=== PATIENT | female | born 1965 | race Caucasian/White ===

== ENCOUNTER → 2023-05-01 08:04 | Outpatient (CLI) | payer BC, SELFPAY ==
--- NOTE | 2023-05-01 08:08 | MM_ITS ---
PROCEDURE INFORMATION: Exam: MG Bilateral Screening 3D Mammography Exam date and time: 05/01/2023 7:57 AM Age: 57 years old Clinical indication: Screening examination; Family history of breast cancer in aunt TECHNIQUE: Imaging protocol: Bilateral Screening tomosynthesis and 2D mammography including computer-aided detection (CAD) when performed. COMPARISON: No relevant prior studies available. FINDINGS: MAMMOGRAPHY: Breast composition: There are scattered areas of fibroglandular density. Mass: None. Architectural distortion: None. Calcifications: No suspicious calcifications. Asymmetric density: None. Skin thickening: None. Axillary adenopathy: None. IMPRESSION: No mammographic evidence of malignancy. Annual screening is recommended unless otherwise clinically indicated. ASSESSMENT: BI-RADS Category 1: Negative
== END ==
PROVIDERS: PCP Family Medicine; Visit Provider Obstetrics & Gynecology
DX: Z12.31 Encounter for screening mammogram for malignant neoplasm of breast (principal)
CPT/HCPCS: 77063; 77067

== ENCOUNTER 2023-07-26 15:18 | Outpatient (CLI) | payer BC, SELFPAY ==
--- NOTE | 2023-07-26 15:25 | XR_ITS ---
FINAL REPORT CLINICAL HISTORY: dyspnea FINDINGS: TWO-VIEW CHEST The heart size is normal. The mediastinum is normal. The lungs are clear. There is no pneumothorax. IMPRESSION: No acute cardiopulmonary process. Reviewed, Interpreted and Dictated by Bereket Ortiz MD Transcribed by Gita Benitez Authenticated and [facility]
== END 2023-07-26 23:59 ==
LOC: RAD 15:19
PROVIDERS: PCP Nurse Practitioner Family; Visit Provider Physician Assistant
DX: R00.2 Palpitations (principal); I10 Essential (primary) hypertension; R01.1 Cardiac murmur, unspecified; R06.09 Other forms of dyspnea; R94.31 Abnormal electrocardiogram [ECG] [EKG]
CPT/HCPCS: 71046; 93225

== ENCOUNTER 2023-08-13 10:46 | Outpatient (CLI) | payer BC, SELFPAY ==
--- NOTE | 2023-08-13 10:51 | CA_ITS ---
APPROVED REPORT EXAM: Comprehensive 2D, Doppler, and color-flow Echocardiogram Insurance Plan Specialist: Zaynab Chan RVT Ht: 5 ft 5 in Wt: 174lbs BSA: 1.86 BP: 148/75 mmHg Indications: DYSPENA,HTN,PALPS,MURMUR,ABN EKG 2D Dimensions LA Volume 50.50 mL LA Volume Index 27.01 mL/m2 (M/F) 16-34 M-Mode Dimensions RVDd 2.97 cm (0.9-2.6) LA Diam 4.27 cm (1.9-4.0) LVDd 4.07 cm (3.5-5.7) LVDs 2.05 cm (3.5-5.7) IVSd 0.88 cm (0.6-1.1) PWd 0.52 cm (0.6-1.1) EF (Teich) 81.30% FS 49.60% EDV (Teich) 72.90 mL TAPSE 2.26 (<1.7) ESV (Teich) 13.60 mL LV Diastology E Decel Time 217 (160-240 msec) E/A Ratio 1.0 Aortic Valve KING Index 1.56 cm2/m2 AoV Peak Israel. 143.0 (50-130 cm/s) AO Peak GR. 8.20 mmHg AO Mean GR. 3.90 (<5 mmHg) AO VTI 27.4 (18-25 cm) KING (VTI) 2.98 (2.5-4.5 cm2) Mitral Valve MV E Max Israel. 126.0 (40-130 cm/s) MV A Velocity 123.0 (40-130 cm/s) E/A Ratio 1.02 MV PHT 63.0 ms Pulmonary Valve PV Peak Velocity 99.0 (50-150 cm/s) Tricuspid Valve TR P. Velocity 260.00 cm/s RAP Estimate 10.00 mmHg RVSP 37.10 mmHg Left Ventricle The left ventricle is normal size. The left ventricular systolic function is normal. The left ventricular ejection fraction is within the normal range. There is increased LV wall thickness. There is normal LV segmental wall motion. Transmitral Doppler flow pattern suggests impaired LV relaxation. LVEF is 55%. Right Ventricle The right ventricle is normal size. The right ventricular systolic function is normal. Atria The left atrium size is normal. The right atrium size is normal. There is no Doppler evidence of interatrial shunt. Aortic Valve The aortic valve is mildly thickened. There is no aortic valvular stenosis. Trace aortic regurgitation. Mitral Valve The mitral valve leaflets are mildly thickened. No evidence of mitral valve stenosis. Mild mitral regurgitation. Tricuspid Valve The tricuspid valve leaflets are thin and pliable. Mild tricuspid regurgitation. RVSP is 25-30 mmHg. Pulmonic Valve The pulmonary valve is normal in structure. Trace pulmonic regurgitation. Great Vessels The aortic root is normal in size. The ascending aorta is not well-visualized. IVC is normal in size and collapses >50% with inspiration. Pericardium There is no pericardial effusion. Other Information Study Quality: Fair Conclusion Normal biventricular systolic function. Mild MR, mild TR. Electronically signed by : Linda Stallworth MD 08/14/2023 22:40:48
--- NOTE | 2023-08-13 12:19 | NM_ITS ---
APPROVED REPORT Exam: Nuclear Stress Test Indication: Chest pain, SOB, Palpitations, Fatigue, HTN, High cholesterol, Family history Patient Location: Outpatient Stress Tech: Lula Wellington [place] Tech:Melisa Roe, ARRT, RT (R)(N) Ht: 5 ft 5 in Wt: 171 lbs Bra Size: 38C HR: 66 bpm BP: 177/88 mmHg BSA: 1.85 m2 Rhythm: NSR TID: 0.99 BMI: 28.4 History: Chest pain, SOB, Palpitations, Fatigue, HTN, High cholesterol, Family history Procedure: Patient exercised on Filiberto protocol 10:35 minutes and sec, resting heart rate 66 bpm, resting blood pressure 177/88 mmHg, with exercise maximum heart rate achived was 147 bpm which is 90 % of the maximum predicted heart rate and blood pressure was 182/82 mmHg. Test was stopped due to SOB. Patient denied any complaint of chest pain. Patient has average exercise capacity, achieved 10.1 METs of workload on treadmill, the blood pressure response to exercise was normal management. Cardiac Stress and Resting SPECT Images: Cardiac Stress and Resting SPECT images were obtained using technetium 99m Myoview 32.5 mCi stress and 10.72 mCi at rest. Resting and stress imaging in supine and prone positions demonstrate no evidence of fixed or reversible perfusion defects. Gated imaging demonstrates normal global and regional LV systolic function. LVEF is calculated at 74%. Conclusion: No evidence of fixed or reversible perfusion defects. Gated imaging demonstrates normal global and regional LV systolic function. LVEF is calculated at 74%. Electronically signed by : Linda Stallworth MD 08/14/2023 23:13:00
[2023-08-13] MEDS: SODIUM CHLORIDE 0.9% 10ML SYR (RAD ONLY) 10 ML IV ×2 (13:01)
[2023-08-13] MEDS: ISOTOPE MYOVIEW (PER STUDY) 1 DOSE IV (13:01)
--- NOTE | 2023-08-13 13:07 | CA_ITS ---
APPROVED REPORT Exam: Exercise Treadmill Technologist: Lula Parnell, Ht: 5 ft 5 in Wt: 174 lbs BSA: 1.86 m2 HR: 65 bpm BP: 170/71 mmHg Rhythm: NSR Medical History Medications: Omeprazole,,,,, Zetia,,,,, Buspirone,,,,, ClonAZEPAM,,,,, Montelukast,,,,, Radha,,,,, Sertraline,,,,, Losartan-HCTZ,,,,, Metoprolol Succinate ER,,,,, Vitamin D3, B12,,,,, ArNuity ELLIPTA,,,,, Stress Test Details Test: Filiberto HR Resting HR: 66 bpm Max Heart Rate (APMHR): 164 bpm Max HR Achieved: 147 bpm Target HR (85% APMHR): 139 bpm % of APMHR: 90 Recovery HR: 97 bpm HR response to stress: Normal HR response to stress BP Resting BP: 177.0/88.0 mmHg Max BP: 182.0/82.0 mmHg Recovery BP: 150.0/65.0 mmHg BP response to stress: Normal blood pressure response to stress. ECG Resting ECG: NSR, no ST changes Stress EC.[address] depression Arrhythmia: PACs Recovery ECG: Return to baseline within 3 minutes of recovery Recovery Arrhythmia: None Clinical Exercise duration: 10:35 min Highest Stage Achieved: Exercise capacity: 10.1 METs Overall Exercise Capacity for Age: Average Stress ECG Conclusion Injected @ 0839 Smyptoms: SOA Chest discomfort Arrhythmias/Ectopy: Occasional PAC ST-T Changes: < 0.[address] depression. Conclusion: Average exercise capacity. No evidence of ischemia at peak stress. Myoview images are reported separately. Test Summary REST . . . . . . . Sitting REST . . . . . . . Standing REST 03:09 0.0 1.2 66 . 177/ 88 . . Stage 1 01:00 10.0 1.7 87 . . . . Stage 1 02:00 10.0 1.7 99 . . . . Stage 1 03:00 10.0 1.7 104 . 170/ 80 . . Stage 2 01:00 12.0 2.5 109 . . . . Stage 2 02:00 12.0 2.5 117 . 182/ 82 . . Stage 2 03:00 12.0 2.5 116 . 182/ 82 . . Stage 3 01:00 14.0 3.4 126 . . . . Stage 3 02:00 14.0 3.4 135 . . . . Stage 3 . . . . . . . Stage held Stage 3 03:00 14.0 3.4 141 . . . . Stage 3 04:00 14.0 3.4 146 . . . . Stage 3 . . . . . . . Stage resumed Stage 3 04:35 14.0 3.4 146 . . . Stop exercise at 10:35 RECOVERY 01:00 0.0 0.0 132 . . . . RECOVERY 02:00 0.0 0.0 117 . . . . RECOVERY 03:00 0.0 0.0 103 . 174/ 84 . . RECOVERY 04:00 0.0 0.0 103 . 159/ 68 . . RECOVERY 04:48 0.0 0.0 100 . 150/ 65 . . Electronically signed by : Linda Stallworth MD 08/14/2023 23:08:49
== END 2023-08-13 23:59 ==
LOC: RT 10:46
PROVIDERS: PCP Nurse Practitioner Family; Visit Provider Nurse Practitioner Family
DX: R06.00 Dyspnea, unspecified (principal); R00.2 Palpitations; R94.31 Abnormal electrocardiogram [ECG] [EKG]; I10 Essential (primary) hypertension
CPT/HCPCS: 78452; 93017; 93018; 93306; A9502

== ENCOUNTER 2024-04-23 07:56 | Outpatient (CLI) | payer BC, SELFPAY ==
[2024-04-23] MEDS: ALBUTEROL 0.083% 2.5 MG/3 ML NEB IH (09:03)
[2024-04-23 10:57] LABS: Albumin Level 5.2 g/dl (3.5-5.0); Chloride 101 mmol/L (98-107); Sodium 140 mmol/L (136-145)
[2024-04-23 10:59] LABS: Alanine Aminotransferase 24 U/L (12-78); Aspartate Amino Transferase 29 U/L (14-36); Blood Urea Nitrogen 12 mg/dl (7-17); Carbon Dioxide 24 mmol/L (22.0-30.0); Estimated Glomerular Filt Rate 74 ml/min (>60); GFR (African American) 89 ML/MIN (>60)
[2024-04-23 11:00] LABS: Albumin/Globulin Ratio 1.7 (1.1-1.8); Alkaline Phosphatase 88 U/L (38-126); Bilirubin,Total 0.7 mg/dl (0.2-1.3); Calcium 10.3 mg/dl (8.4-10.2); Chol/HDL Ratio 4.9 (1-3.5); Cholesterol 182 mg/dl (140-200); Glucose 95 mg/dl (74-100); HDL Cholesterol 37 mg/dl (40-60); Total Protein,Serum 8.2 g/dl (6.3-8.2); Triglycerides 283 mg/dl (30-150); VLDL Cholesterol 57 mg/dL (0-40)
[2024-04-23 11:17] LABS: Direct LDL Cholesterol 109.86 mg/dL (100-129)
[2024-04-23 11:20] LABS: 25-OH Vitamin D, Total 81.1 ng/mL (30-100)
[2024-04-23 11:31] LABS: Thyroid Stimulating Hormone 0.32 uIU/mL (0.465-4.68)
[2024-04-24 15:33] LABS: Anti-Cyclic Citrullinated Pept 7 units (0-19)
== END 2024-04-23 23:59 | disposition home or self-care (01) ==
LOC: RT 07:58
PROVIDERS: PCP Nurse Practitioner Family; Visit Provider Allergy & Immunology
DX: J45.40 Moderate persistent asthma, uncomplicated (principal); R94.2 Abnormal results of pulmonary function studies; E03.9 Hypothyroidism, unspecified; I10 Essential (primary) hypertension; M13.0 Polyarthritis, unspecified; E55.9 Vitamin D deficiency, unspecified; E78.2 Mixed hyperlipidemia
CPT/HCPCS: 36415; 80053; 80061; 82306; 84443; 86200; 86225; 86235; 86431; 94060; 94726; 94729; J7613

== ENCOUNTER 2024-05-02 08:28 | Outpatient (CLI) | payer BC, SELFPAY ==
--- NOTE | 2024-05-02 08:31 | MM_ITS ---
PROCEDURE INFORMATION: Exam: MG Bilateral Screening 3D Mammography Exam date and time: 05/02/2024 8:16 AM Age: 58 years old Clinical indication: Screening examination. Paternal aunt had breast cancer. TECHNIQUE: Imaging protocol: Bilateral Screening tomosynthesis and 2D mammography including computer-aided detection (CAD) when performed. COMPARISON: MG MM DIG SCREENING MAMM BI W/CAD 05/01/2023 7:57 AM FINDINGS: MAMMOGRAPHY: Breast composition: There are scattered areas of fibroglandular density. Mass: No suspicious mass. Architectural distortion: None. Calcifications: No suspicious calcifications. Asymmetric density: None. Skin thickening: None. Axillary adenopathy: None. IMPRESSION: No mammographic evidence of malignancy. Annual screening is recommended unless otherwise clinically indicated. ASSESSMENT: BI-RADS Category 1: Negative.
== END 2024-05-02 23:59 | disposition home or self-care (01) ==
LOC: RAD 08:28
PROVIDERS: PCP Nurse Practitioner Family; Visit Provider Registered Nurse
DX: Z12.31 Encounter for screening mammogram for malignant neoplasm of breast (principal)
CPT/HCPCS: 77063; 77067

== ENCOUNTER 2024-11-10 09:17 | Outpatient (CLI) | payer BC, SELFPAY ==
[2024-11-10 10:36] LABS: Chol/HDL Ratio 3.2 (1-3.5); Cholesterol 149 mg/dl (140-200); HDL Cholesterol 46 mg/dl (40-60); Triglycerides 179 mg/dl (30-150); VLDL Cholesterol 36 mg/dL (0-40)
[2024-11-10 10:47] LABS: Direct LDL Cholesterol 81.88 mg/dL (100-129)
== END 2024-11-10 23:59 | disposition home or self-care (01) ==
LOC: LAB 09:18
PROVIDERS: PCP Nurse Practitioner; Visit Provider Nurse Practitioner
DX: E78.5 Hyperlipidemia, unspecified (principal)
CPT/HCPCS: 36415; 80061

== ENCOUNTER 2024-12-08 11:55 | Day surgery (SDC) | payer BC, SELFPAY ==
[2024-12-05 13:15] VITALS: BMI 27.4
[2024-12-08 12:58] VITALS: BP 127/69; PULSE 71; RESP 18; TEMP 36.6; O2SAT 98
--- NOTE | 2024-12-08 13:43 | EXP.HP ---
History of Present Illness *Admission Date: 12/08/24 *Reason for visit:: Screening *History of present illness: Mrs. Godwin is a 59-year-old female who is here for initial screening colonoscopy. The patient's mother had colon cancer in her late 70s. The examination is deemed medically necessary for screening colonoscopy. The patient has been seen, interviewed and examined prior to the procedure by both myself and the anesthesia provider. [facility] Disclaimer: The information contained in this section may have been updated after the patient was seen, as this information can be updated by other users. Medical History (Updated 12/08/24 @ 13:56 by Rajeev Owen II, MD) Hypertriglyceridemia HLD (hyperlipidemia) Anxiety Asthma Palpitations HTN (hypertension) Surgical History History of sinus surgery H/O total hysterectomy Family History Other Colitis Colon cancer Diabetes Hypertension Stroke Social History Smoking Status: Never smoker alcohol intake: never current occupational status: employed Travel in the last 8 weeks?: Inside the [place] Have you lived/traveled outside US in past 30 days?: No Contact w/someone who lives/traveled outside US past 30 days?: No Exposure to someone with infectious disease in past 14 days?: No Do you have a fever (greater than 100.4 F or 38 C)?: No Have you tested positive for COVID-19?: No Exposed to someone with COVID-19 in past 14 days?: No Do you have a sore throat?: No Do you have a cough?: No Do you have any weakness?: No Do you have any diarrhea?: No Are you experiencing any unusual bleeding?: No Do you have any muscle aches/pain?: No Do you have any abdominal pain?: No Are you experiencing loss of taste or smell?: No Other Medical History Have you received the Pneumonia Vaccine: Yes Review of Systems Review of Systems Review of systems (narrative): Negative *Cardiovascular Comments: Negative *Gastrointestinal Comments: Negative *Genitourinary Comments: Negative *Musculoskeletal Comments: Negative *Neurologic Comments: Negative Meds Home Medications and Allergies Home Medications ?Medication ?Instructions ?Recorded ?Confirmed ?Type buspirone 10 mg tablet 5 mg PO DAILY 07/26/23 12/08/24 History cholecalciferol (vitamin D3) 25 25 mcg PO DAILY 07/26/23 12/08/24 History mcg (1,000 unit) capsule clonazepam 0.5 mg tablet 0.5 mg PO DAILY 07/26/23 12/08/24 History fexofenadine 180 mg tablet 180 mg PO DAILY 07/26/23 12/08/24 History (Radha Allergy) fish, borage, flaxseed oils-omega 1,200 cap PO DAILY 07/26/23 12/08/24 History 3,6,9 comb no.1 1,200 mg capsule montelukast 10 mg tablet 10 mg PO DAILY 07/26/23 12/08/24 History omeprazole 20 mg capsule,delayed 20 mg PO DAILY 07/26/23 12/08/24 History release sertraline 100 mg tablet 100 mg PO DAILY 07/26/23 12/08/24 History vitamin B complex (B 1 tab PO DAILY 07/26/23 12/08/24 History Complex-Vitamin B12 tablet) fluticasone furoate 100 1 inh inhalation DAILY 08/09/23 12/08/24 History mcg/actuation blister powder for inhalation (Arnuity Ellipta) ezetimibe 10 mg tablet (Zetia) 10 mg PO DAILY #90 tabs 02/07/24 12/08/24 Rx losartan 100 1 tab PO DAILY #90 tabs 02/07/24 12/08/24 Rx mg-hydrochlorothiazide 12.5 mg tablet metoprolol succinate 50 mg 50 mg PO DAILY #90 tabs 02/07/24 12/08/24 Rx tablet,extended release 24 hr sodium,potassium,mag sulfates 17.5 See Rx Instructions PO .COMPLEX 11/25/24 12/08/24 Rx gram-3.13 gram-1.6 gram oral soln #354 mL (Suprep Bowel Prep Kit) New Prescriptions to Start Prescriptions: Allergies Allergy/AdvReac Type Severity Reaction Status Date / Time Vjiyyaa-PBP-DyA Reductase AdvReac Mild myalgia Verified 12/08/24 12:57 Inhibitor Exam Data for Last 24 hours Vital signs and Labs for Last 24 Hours: Temp Pulse Resp BP Pulse Ox O2 Del Method 97.8 F 71 18 127/69 98 Room Air 12/08/24 12:58 12/08/24 12:58 12/08/24 12:58 12/08/24 12:58 12/08/24 12:58 12/08/24 12:58 I & O for Last 24 hours: Intake & Output 12/05/24 12/06/24 12/07/24 12/08/24 23:59 23:59 23:59 23:59 Weight 165 lb *Routine HEENT Exam Head: Present normocephalic Eye: Present EOMI and PERRL ENT: Present mucous membranes moist *Routine Neck Exam Neck: Present supple *Routine Respiratory Exam Respiratory: Present CTA bilaterally *Routine Cardiovascular Exam Cardiovascular: Present RRR *Routine Abdominal Exam Abdominal: Present soft and normoactive bowel sounds; Absent tenderness *Routine Rectal Exam Rectal:: deferred *Routine Genitalia Exam Genitalia:: deferred *Routine Extremities Exam Extremities: Absent cyanosis, clubbing or edema *Routine Skin Exam Skin: Present warm; Absent rash *Routine Neurological Exam Neurological: Present alert and oriented X3 Assessment and Plan *Assessment and plan (1) Screening for colon cancer: Status: Acute Category: Medical Code(s): Z12.11 - Encounter for screening for malignant neoplasm of colon (2) Family history of colon cancer in mother: Status: Acute Category: Medical Code(s): Z80.0 - Family history of malignant neoplasm of digestive organs Plan A/P: 1. Screening for colon cancer is the preprocedural diagnosis. Family history of colon cancer in mother. This is her first colonoscopy. The patient will be anesthetized/sedated using MAC sedation. The patient has been seen and examined. Cardiac and lung assessment prior to the examination is stable. Proceed with planned screening colonoscopy.
--- NOTE | 2024-12-08 13:58 | P.PCN_ITS ---
[facility] Procedure Note Date: 12/08/24 Time: 14:21 Procedure Note:: Colonoscopy Procedure Report: Colonoscopy with cold snare polypectomy Endoscopist: Rajeev Owen II, MD Referring physician: Micaela Dorado [facility], [address] [place] [id number] Date of Procedure: December 08, 2024 Equipment: Olympus 190 variable stiffness pediatric colonoscope Sedation: MAC sedation Indication: Mrs. Godwin is a 59-year-old female who is here for initial screening colonoscopy. She does state that her mother had colon cancer in her late 70s. Her father had an advanced form of severe colitis. The patient did have a negative Cologuard 3 years ago. The patient has had a longstanding IBS with c rampy abdominal discomfort and diarrhea intermittently which is unchanged. She reports no rectal bleeding, weight loss or change in bowel habits. Procedure: Prior to the procedure, a history and physical exam was performed, and patient's medications and allergies were reviewed. The risks, benefits and alternatives of the sedation and procedure were discussed with the patient. All questions we re answered and informed consent was obtained. The patient was brought to the procedure room. Patient identification and proposed procedure were verified by the physician and the nurse. The patient was placed in a left lateral decubitus position and the scope was passed under direct vision. Throughout the procedure, the patient's blood pressure, pulse, and oxygen saturations were monitored continuously. The colonoscopy was accomplished without difficulty. The patient tolerated the procedure well. Findings: On digital rectal examination there was normal rectal tone. There were no external hemorrhoids. The colonoscope was introduced through the anal canal to the rectum and advanced to the cecum. The ileocecal valve and appendiceal orifice were identified. The scope was advanced a short distance into the ileum which appeared grossly normal. The scope was then withdrawn into the colon. There were 8 colon polyps (cecum x 1 (9 mm), ascending x 3 (3, 5 and 5 mm), transverse x 2 (4 and 6 mm) and descending x 2 (5 and 6 mm)). These were all removed via cold snare polypectomy. There was mild melanosis coli within the colon. The remaining cecum, ascending, transverse, descending, sigmoid and rectum were grossly normal. There were no other mucosal abnormalities identified. Upon retroflexion within the rectum there were grade 1-2 internal hemorrhoids. The preparation was excellent throughout with [place] Preparation Score of 9. The cecal time was 16 minutes. Impression: 1. Colonic polyps x 8 (ranging in size from 3 to 8 mm) 2. Mild melanosis coli 3. Grade 1-2 internal hemorrhoids Plan: I will follow-up the polyp histology and recommend repeat surveillance colonoscopy again in 3 years based upon the pathology. I would encourage psyllium fiber supplementation on a long-term daily maintenance basis.
[2024-12-08 14:22] VITALS: BP 95/42; PULSE 89; RESP 16; O2SAT 93
[2024-12-08 14:32] VITALS: BP 107/50; PULSE 86; RESP 16; O2SAT 95
--- NOTE | 2024-12-08 14:36 | EXP.ANES.CKL ---
[facility] Disclaimer: The information contained in this section may have been updated after the patient was seen, as this information can be updated by other users. Medical History (Updated 12/08/24 @ 13:56 by Rajeev Owen II, MD) Hypertriglyceridemia HLD (hyperlipidemia) Anxiety Asthma Palpitations HTN (hypertension) Surgical History History of sinus surgery H/O total hysterectomy Family History Other Colitis Colon cancer Diabetes Hypertension Stroke Social History Smoking Status: Never smoker alcohol intake: never substance use type: denies use current occupational status: employed Travel in the last 8 weeks?: Inside the [place] [facility] Anesthesia Checklist Patient Identification Patient Identification: Arm Band Structural Data Admitted From: Home Planned Operative Procedure/s: Colonoscopy Consent for Planned Operative Procedure(s) Verified: Yes Verified Documents: Surgical Consent and History and Physical NPO Status Verified Time NPO: 00:00 Additional verifications Anesthesia Reactions: No Airway Assessment Mallampati Score:: Class II C-Spine Mobility Assessed: Yes TMJ Mobility Assessed: Yes Dentition: Good Dentition Neurological Assessment Level of Consciousness: Awake, Alert and Appropriate Anesthesia Plan Anesthesia Risk discussed: Yes Anesthesia Plan: Verified ASA Class: II Anesthesia Type: MAC
[2024-12-08 14:42] VITALS: BP 123/68; PULSE 88; RESP 16; O2SAT 95
[2024-12-08 14:52] VITALS: BP 117/70; PULSE 91; RESP 16; O2SAT 96
== END 2024-12-08 15:04 | disposition home or self-care (01) ==
PROVIDERS: PCP Nurse Practitioner; Visit Provider Internal Medicine Gastroenterology
PROC: 0DJD8ZZ Inspection of Lower Intestinal Tract, Via Natural or Artificial Opening Endoscopic (ICD-10-PCS; CPT 45378; principal; 2024-12-08 13:30)
DX: Z12.11 Encounter for screening for malignant neoplasm of colon (principal); K63.5 Polyp of colon; K63.89 Other specified diseases of intestine; K64.0 First degree hemorrhoids; K64.1 Second degree hemorrhoids; J45.909 Unspecified asthma, uncomplicated; E78.5 Hyperlipidemia, unspecified; I10 Essential (primary) hypertension; Z80.0 Family history of malignant neoplasm of digestive organs; Z79.899 Other long term (current) drug therapy
CPT/HCPCS: 45385